=== PATIENT | female | born 1930 | race Caucasian/White ===

== ENCOUNTER 2017-03-28 12:50 | Inpatient (IN) | payer OTHER, MEDICARE ==
[~2017-03-28] VITALS: Ht 165.1 cm; Wt 73.5 kg
--- NOTE | 2017-03-28 13:35 | ED GI/GU/ABDOMINAL COMPLAINT ---
See Addendum History of Present Illness General Chief Complaint: General Adult Stated Complaint: PT HAS FEVER,BLOOD SUGAR IS HIGH 270 Source: patient, family Exam Limitations: no limitations Triage Note: PT TO ED WITH DAUGTHER FOR C/O ABD PAIN AND DIARRHEA X 2 WEEKS. FINGERSTICK 217. PT HAD EMS AT HER HOUSE, AND WAS TOLD SHE HAD A FEVER. AFEBRILE NOW. Triage Nurses Notes Reviewed? yes ? n Is pt currently ? No HPI: This is an 86-year-old female with past medical history significant for CAD status post quadruple vessel bypass, diabetes mellitus with diabetic neuropathy, hypothyroidism, hypertension, who comes in with the chief faint of abdominal pain and diarrhea. The patient's family who was in room with her, they stated that symptoms started around 2 weeks ago. Around that time she was having about 2-3 bowel movements a day. They did not initially recognize patient's symptoms as she did not mention it to them. Patient notices nausea but no vomiting. Last bowel movement was yesterday. Patient denies any today. Patient does endorse some abdominal pain. She states that it is "an upset feeling" in her lower quadrants of abdomen. She does endorse decreased appetite and family endorses noticeable weight loss. The family had called emergency medical services for outpatient as she seemed weaker and more lethargic. Per granddaughter, patient normally ambulates comfortably on her own. However, they had to bring her into the ED with a wheelchair as she was feeling weak. Additionally, she states that they had to vigorously shake her to wake up in the morning and there was concern for excessive lethargy. At home her fingerstick is around 217. Normally her blood sugars run between 100-130. Last week patient's PCP discontinued all oral hypoglycemics as her blood sugar was extremely well-controlled. Patient denies any headache, slurring of speech, blurry vision, facial droop, chest pain, shortness of breath, vomiting, recent travel, or sick contacts. She does endorse some nausea, diarrhea, decreased appetite. (ADAM POWELL,SUSY) Vital Signs & Intake/Output Vital Signs & Intake/Output Vital Signs Date Time Temp Pulse Resp B/P B/P Pulse O2 O2 Flow FiO2 Mean Ox Delivery Rate 03/28 1543 Room Air 03/28 1521 97.0 71 18 166/74 96 Room Air 03/28 1254 97.0 60 20 126/71 96 Room Air Allergies Coded Allergies: codeine (NAUSEA 03/28/17) nut - unspecified (ANAPHYLAXIS 03/28/17) Reconcile Medications Aspirin (Lo-Dose Aspirin EC) 81 MG TABLET.DR 1 TAB PO DAILY HEART/BLOOD ( Reported) Levothyroxine Sodium 50 MCG TABLET 1 TAB PO DAILY THYROID (Reported) Lisinopril 20 MG TABLET 1 TAB PO DAILY BP (Reported) Pravastatin Sodium 10 MG TABLET 1 TAB PO QPM CHOLESTEROL (Reported) (ARTHUR POWELL,MARTIN) Past History Travel History Traveled to [place] past 21 day No Medical History Any Pertinent Medical History? see below for history Cardiovascular: CAD, hypertension Respiratory: NONE Gastrointestinal: NONE Endocrine: diabetes, Hypothyroid Surgical History Surgical History: unobtainable Psychosocial History Tobacco Use: Never used ETOH Use: denies use Illicit Drug Use: denies illicit drug use Family History Hx Contributory? No (SUSY MEDINA MD) Review of Systems Review of Systems Constitutional: Reports: malaise, weakness, unexplained weight loss. Denies: chills, diaphoresis, fever. EENTM: Denies: blurred vision, visual changes. Respiratory: Reports: cough. Denies: short of breath, sputum production. Cardiovascular: Denies: chest pain, palpitations, syncope. GI: Reports: see HPI, abdominal pain, bloating, diarrhea, nausea. Denies: melena, bloody stool, changes in stool, vomiting. Genitourinary: Denies: dysuria, frequency, hesitation, pain. Musculoskeletal: Denies: back pain, joint pain, muscle pain. Skin: Reports: no symptoms. (ADAM POWELL,SUSY) Physical Exam Physical Exam General Appearance: no apparent distress, alert, awake Head: atraumatic, normal appearance Eyes: Bilateral: normal appearance, PERRL, EOMI, normal inspection. Ears, Nose, Throat, Mouth: hearing grossly normal Neck: supple Respiratory: crackles Cardiovascular: regular rate/rhythm, murmur, Does have intermittent PVC Gastrointestinal: soft, no rebound, guarding or rigidity. SOme slight tenderness to deep palpation in lower quadrants Back: No CVA tenderness Core Measures ACS in differential dx? No Severe Sepsis Present: No Septic Shock Present: No (ADAM POWELL,SUSY) Physical Exam Peripheral Pulses: 2+ radial (R), 2+ radial (L) Extremities: normal range of motion Neurologic/Psych: awake, alert, ORIENTED X 1 Skin: intact, normal color, warm/dry, ecchymosis (ARTHUR POWELL,MARTIN) Progress Differential Diagnosis: bowel obstruction, gastritis, UTI/pyelo Plan of Care: Orders Procedure Date/time Status Heart Healthy Diet 03/28 D Active CULTURE,STOOL 03/28 1749 Active OVA AND PARASITE ANTIGENS 03/28 1749 Active C.DIFFICILE 03/28 1749 Active Lab Add-on Test 03/28 171 Active CULTURE,STOOL 03/28 171 Active C.DIFFICILE 03/28 171 Active Add-on Test (ER Only) 03/28 1703 Active Pathway - chart 03/28 165 Active CULTURE,URINE 03/28 165 Active LOWER RESPIRATORY CULTURE 03/28 165 Active Add-on Test (ER Only) 03/28 1653 Active LACTIC ACID 03/28 1612 Active BASIC ELECTROLYTES PLUS BUN&CR 03/28 1610 Active URINE OSMOLALITY 03/28 1537 Active URINE LYTES, SPOT 03/28 1537 Active SERUM OSMOLALITY 03/28 1537 Active Patient Data 03/28 1527 Active Code Status 03/28 1526 Active Admit to inpatient 03/28 1522 Active Vital Signs 03/28 1522 Active Add-on Test (ER Only) 03/28 1504 Active STREP PNEUMO URINARY ANTIGEN 03/28 1500 Complete LEGIONELLA URINARY ANTIGEN 03/28 1500 Complete PHOSPHORUS 03/28 1410 Complete MAGNESIUM 03/28 1410 Complete FREE T4 03/28 1410 Complete FingerStick- Glucose 03/28 1325 Active BLOOD CULTURE 03/28 1312 Active URINALYSIS 03/28 1312 Complete THYROID STIMULATING HORMONE 03/28 1312 Complete LACTIC ACID 03/28 1312 Complete COMPREHENSIVE METABOLIC PANEL 03/28 1312 Complete CBC WITHOUT DIFFERENTIAL 03/28 1312 Complete ACETONE 03/28 1312 Complete EKG 03/28 1312 Active US-EXT BILAT VENOUS DOPPLER 03/28 UNK Active US-PELVIC MASS DIAG 03/28 UNK Active Lab Add-on Test 03/28 UNK Active VTE Mechanical Prophylaxis 03/28 UNK Active Vital Signs 03/28 UNK Active Intake & Output 03/28 UNK Active Current Medications Sig/Epifanio Start time Last Medication Dose Stop Time Status Admin Acetaminophen 650 MG Q6P PRN 03/28 1700 AC (Tylenol) Enoxaparin Sodium 40 MG DAILY@1700 03/28 1655 AC (Lovenox) Potassium Chloride 10 MEQ ONCE ONE 03/28 1615 CAN 03/28 1616 Magnesium Sulfate 1 GM Q2H 03/28 1545 AC (Mag Sulfate in D5) 03/28 1944 Dextrose/Water 100 ML (D5W) Sodium Chloride 1,000 ML Q10H 03/28 1345 AC 03/28 (Normal Saline 0.9%) 1527 Laboratory Tests 03/28/17 1710: Serum Osmolality Pending 03/28/17 1710: Lactic Acid Pending 03/28/17 1710: Sodium Pending, Potassium Pending, Chloride Pending, Carbon Dioxide Pending, Anion Gap Pending, BUN Pending, Creatinine Pending, BUN/Creatinine Ratio Pending 03/28/17 1500: Urine Color YEL, Urine Clarity CLDY H, Urine pH 6.5, Ur Specific [place] 1.010, Urine Protein 100 H, Urine Ketones NEG, Urine Nitrite NEG, Urine Bilirubin NEG, Urine Urobilinogen 0.2, Ur Leukocyte Esterase MOD H, Ur Microscopic SEDIMENT EXAMINED, Urine RBC 10-15 H, Urine WBC 3-5 H, Urine Bacteria PACKD H, Urine Hemoglobin MOD H, Urine Glucose NEG 03/28/17 1500: Urine Osmolality Pending, Ur Random Creatinine Pending, Ur Random Sodium Pending , Ur Random Potassium Pending, Fraction Sodium Excret Pending 03/28/17 1410: Anion Gap 7, Estimated GFR > 60, BUN/Creatinine Ratio 11.3, Glucose 178 H, Lactic Acid 0.8, Calcium 8.0 L, Phosphorus 2.1 L, Magnesium 1.5 L, Total Bilirubin 1.0, AST 26, ALT 31, Alkaline Phosphatase 69, Total Protein 5.3 L, Albumin 3.0 L, Globulin 2.3, Albumin/Globulin Ratio 1.3, TSH 3.220, Free T4 1.95 H, CBC w Diff NO MAN DIFF REQ, RBC 4.11 L, MCV 78.7 L, MCH 27.8, RDW 14.2, MPV 7.3 L, Gran % 73.9, Lymphocytes % 17.4 L, Monocytes % 8.3, Eosinophils % 0.1, Basophils % 0.3, Absolute Granulocytes 4.5, Absolute Lymphocytes 1.1 L, Absolute Monocytes 0.5, Absolute Eosinophils 0, Absolute Basophils 0, PUBS MCHC 35.3, Acetone Level NEGATIVE 03/28/17 1337: Acetone Level Cancelled 03/28/17 1336: TSH Cancelled Microbiology 03/28 1710 STOOL: Clostridium difficile Toxin A & B - ORD 03/28 171 STOOL: Stool Culture - ORD 03/28 1658 URINE ROUT: Urine Culture - CAN Cancelled: Cancelled via OE: Duplicate Order 03/28 1657 LOWER RESP: Respiratory Culture - ORD 03/28 165 LOWER RESP: Gram Stain - ORD 03/28 1500 URINE ROUT: Legionella Antigen - COMP 03/28 1500 URINE ROUT: Streptococcus pneumoniae Antigen (M - COMP STREP PNEUMO BACTERIAL AG 03/28 1500 URINE ROUT: Urine Culture - RECD 03/28 1415 BLOOD: Blood Culture - RECD 03/28 1410 BLOOD: Blood Culture - RECD Patient admitted to hospital service on general med. Electrolyte replacement initiated in the emergency department. CT scan shows bladder outlet obstruction and thickening in the pelvis. She may require an inpatient urology and gynecology consultation. Suspect electrolytes depletion from recurrent diarrhea. Consider stool cultures. (ARTHUR POWELL,MARTIN) Initial ED EKG: normal axis Comments: 1:42 PM- obtaining labs and imaging. 3:00 pm Labs notable for hyponatremia, hypochloremia. Repleting electrolytes 3:[address] Blair and MOD Dr. Fontaine. Pt will be admitted to floor. 5:[address] with hydronephrosis and bladder thickening (ADAM POWELL,[facility] [place]) Differential Diagnosis: COLITIS, MALIGNANCY, MALABSORPTION, SECRETORY DIARRHEA Diagnostic Imaging: Viewed by Me: CT Scan. Discussed w/RAD: CT Scan. Radiology Impression: PATIENT: DIANA JON PRESENT AGE: 86 PATIENT ACCOUNT NO: [id number] : 31 LOCATION: [facility] ORDERING PHYSICIAN: MARTIN GIBSON MD SERVICE DATE: 03/28/17 EXAM TYPE: CAT - CT ABD & PELVIS W IV CONTRAST; CT CHEST W IV CONTRAST EXAMINATION: CT CHEST WITH CONTRAST CT ABDOMEN AND PELVIS WITH CONTRAST CLINICAL INFORMATION: Weakness. Hyponatremia. COMPARISON: Renal ultrasound 03/07/2006. TECHNIQUE: Multidetector volumetric CT imaging of the chest, abdomen and pelvis was obtained after the administration of 95 mL of intravenous Optiray 320 without immediate adverse reactions. DLP: 358.42 mGy-cm FINDINGS: CT CHEST: Lungs: The lungs are clear with no evidence of inflammation or nodules. Mediastinum: Status post median sternotomy. Status post mitral valve annuloplasty. There is calcified small subcentimeter lymph node in the pretracheal retrovascular space. No bulky lymphadenopathy. There is vascular calcifications of aorta. There is no pericardial effusion. Large hiatal hernia. Pleura: There is no pleural effusion. No pleural mass or thickening. Axilla: No lymphadenopathy. CT ABDOMEN AND PELVIS : Liver, Gallbladder, and Biliary Tree: The liver is normal in size, shape, and attenuation. No focal hepatic lesion or biliary ductal dilatation is present. The gallbladder is unremarkable with no evidence of radiopaque gallstones, gallbladder wall thickening, or obvious pericholecystic inflammatory changes. Pancreas: No acute change of the pancreas. No mass. No pancreatic duct dilatation. Spleen: Spleen normal in size and contour. No focal lesion. Adrenal Glands: Adrenal glands are normal in size. No focal mass. Kidneys and Ureters: Marked bilateral hydronephrosis. There is dilatation of the calyces renal pelvis and ureters to the ureterovesical junction of both collecting systems. There is thinning of the cortex of both kidneys indicating that this is chronic change of the kidneys. Bladder: Bladder is partially filled. Mild bladder wall thickening. Gastrointestinal Tract: No acute change of bowel. No bowel obstruction. No bowel wall thickening or edema. A few diverticula of colon but no diverticulitis. The appendix is normal. The small bowel loops are normal. There is a large hiatal hernia. Mesentery: No focal inflammation. No free fluid. No free air. Abdominal Wall: No significant hernia is appreciated. Lymph Nodes: Normal Vascular: Atherosclerotic vascular calcifications of aorta and iliac vessels without aneurysm. Pelvic Viscera: Uterus is retroverted. Low attenuating area seen at the cervical region with fullness in the lower uterine segment and cervical area. Osseous Structures: Multilevel degenerative change of the spine with disc height narrowing and endplate spurs . Status post median sternotomy. Hip joint narrowing bilateral. Subchondral cystic change of the right femoral head. IMPRESSION: 1. Marked chronic hydronephrosis of both kidneys. Mild bladder wall thickening. Changes suggest bladder outlet obstruction. 2. Soft tissue fullness in the lower uterine segment and cervical region. Pelvic ultrasound would be suggested for further evaluation. Correlate with physical exam. 3. Large hiatal hernia. 4. No acute change of the chest. No significant lymphadenopathy or mass. Status post median sternotomy. DICTATED BY: GENET BOUDREAUX MD DATE/TIME DICTATED: 03/28/171600 PACK CHANGER:AMAYA DATE/TIME TRANSCRIBED:03/28/171600 CONFIDENTIAL, DO NOT COPY WITHOUT APPROPRIATE AUTHORIZATION. <Electronically signed in Other Vendor System> SIGNED BY: GENET BOUDREAUX MD 03/28/17 5548 (MARTIN GIBSON MD) Departure Departure Disposition: STILL A PATIENT Condition: Stable Clinical Impression Primary Impression: Hyponatremia Secondary Impressions: Hypokalemia Referrals: FREDERICK SINGH APRN (PCP/Family) Departure Forms: Customer Survey General Discharge Information Admission Note Spoke With: BRIANNE BLAIR MD Documentation of Exam: Documentation of any treatments & extenuating circumstances including Concerns Regarding Discharge (functional status, medication knowledge or non-compliance, living conditions, etc.) that warrant an admission rather than observation: [Pt significantly below baseline. Weak and lethargic. Profound hyponatremia/kalemia and electrolyte abnormalities] (ADAM POWELL,SUSY) Admission Note Documentation of Exam: Documentation of any treatments & extenuating circumstances including Concerns Regarding Discharge (functional status, medication knowledge or non-compliance, living conditions, etc.) that warrant an admission rather than observation: [ STOOL CULTURES, UROLOGY CONSULTATION, CONSIDER PELVIC U/S] Resident Co-Sign Statement Statement: ED Attending supervision documentation- [X] I saw and evaluated the patient. I have also reviewed all the pertinent lab results and diagnostic results. I agree with the findings and the plan of care as documented in the Resident's documentation. [X] I have reviewed the ED Record and agree with the Resident's documentation. [] Additions or exceptions (if any) to the Resident's note and plan are summarized below: [] (MARTIN GIBSON MD)
[2017-03-28 14:30] LABS: ABSOLUTE BASOPHIL COUNT 0 /CUMM (0.0-0.2); ABSOLUTE EOSINOPHIL COUNT 0 /CUMM (0.0-0.7); ABSOLUTE GRANULOCYTE CT 4.5 /CUMM (1.4-6.5); ABSOLUTE LYMPH COUNT 1.1 /CUMM (1.2-3.4); ABSOLUTE MONOCYTE COUNT 0.5 /CUMM (0.10-0.60); BASOPHIL % 0.3 % (0.0-2.0); EOSINOPHIL % 0.1 % (0-5); GRANULOCYTE % 73.9 % (42.2-75.2); HEMATOCRIT 32.3 % (37-47); MEAN CORPUSCULAR HGB 27.8 PG (27.0-31.0); MEAN CORPUSCULAR HGB CONC 35.3 G/DL (33.0-37.0); MEAN CORPUSCULAR VOLUME 78.7 FL (81.0-99.0); MEAN PLATELET VOLUME 7.3 FL (7.4-10.4); PLATELET COUNT 191 /CUMM (130-400); RBC DISTRIBUTION WIDTH 14.2 % (11.5-14.5); RED BLOOD CELL CT 4.11 /CUMM (4.20-5.40); WHITE BLOOD CELL COUNT 6.1 /CUMM (4.8-10.8)
--- NOTE | 2017-03-28 15:45 | History & Physical ---
TYSON POWELL,[facility] 03/28/17 1545: General Information and HPI MD Statement: I have seen and personally examined DIANA JON and documented this H&P. The patient is a 86 year old F who presented with a patient stated chief complaint of [DIARRHEA,ABDOMINAL PAIN, WEAKNESS]. Source of Information: patient, great-granddaughter Exam Limitations: no limitations History of Present Illness: 86-year-old female with PMH of CAD s/p quadruple bypass, DM with diabetic nephropathy, hypothyroidism, HTN, was brought in for 2 weeks history of diarrhea , low abdominal pain, and weakness. She describes the abdominal pain as "sickly feeling, dullache, associated with nausea without vomiting. She has 3-4 loose bowel movements daily. She drinks about 8 glasses of water daily. She usually eats banana and yogurt. She denies eating unusual food, sick contacts, travel history, recent antibiotics use. She complains of cough, productive of sputum. Denies shortness of breath, chest pain. Pt lives in a [facility] apartment by herself, independent at baseline. Over the last 2 weeks, she hasn't been wanting to go out much. Her son and great- granddaughter frequently checks in on her (daily). Over the last 1 month, she has been needing a walker to ambulate due to decreased sensation on her feet. EMS was called, they reported temp of 100.4, and blood sugar of 270. Of note, she followed up with her PCP in January and was taken off glipizide due to well- controlled blood sugar. Allergies/Medications Allergies: Coded Allergies: codeine (NAUSEA 03/28/17) nut - unspecified (ANAPHYLAXIS 03/28/17) Past History Travel History Traveled to [place] past 21 day No Medical History Cardiovascular: CAD, hypertension Respiratory: NONE Gastrointestinal: NONE Endocrine: diabetes, Hypothyroid Surgical History Surgical History: non-contributory Past Family/Social History Family History Relations & Conditions if any BROTHER FH: diabetes mellitus Psychosocial History Where do you live? Home Who Do You Live With? self Services at Home: None Smoking Status: Never Smoked ETOH Use: denies use Illicit Drug Use: denies illicit drug use Functional Ability ADLs Independent: dressing, eating, toileting, bathing. Ambulation: independent, walker IADLs Independent: shopping, housework, finances, food prep, telephone, transportation , medication admin. Review of Systems Review of Systems Constitutional: Reports: fever, weakness. Denies: chills. EENTM: Denies: visual changes. Cardiovascular: Denies: chest pain. Respiratory: Reports: cough, sputum production. Denies: short of breath. GI: Reports: abdominal pain, diarrhea, nausea. Denies: bloody stool, vomiting. Genitourinary: Denies: dysuria. Exam & Diagnostic Data Last 24 Hrs of Vital Signs/I&O Vital Signs Date Time Temp Pulse Resp B/P B/P Pulse O2 O2 Flow FiO2 Mean Ox Delivery Rate 03/28 1543 Room Air 03/28 1521 97.0 71 18 166/74 96 Room Air 03/28 1254 97.0 60 20 126/71 96 Room Air Intake & Output 03/28 1600 03/28 0800 03/28 0000 Intake Total Output Total Balance Patient 68.946 kg Weight Weight Estimated Measurement Method Physical Exam General Appearance Alert, Oriented X3, Cooperative, No Acute Distress Skin No Rashes, No Breakdown, No Significant Lesion HEENT Atraumatic, PERRLA, Mucous Membr. moist/pink Neck Supple, +2 Carotid Pulse wo Bruit Cardiovascular + murmur, rate irregular most likely due to PVCs Lungs rhonchi at lung bases, could be due to grunting Abdomen Normal Bowel Sounds, Soft, No Tenderness, movable mass on left lower quadrant Neurological Normal Speech, Normal Tone, strength 4/5 Extremities right lower extremity larger than left, slightly tender Vascular Normal Pulses, Pulses Symmetrical, normal cap refill Last 24 Hrs of Labs/Osvaldo: Laboratory Tests 03/28/17 1710: Serum Osmolality Pending 03/28/17 1710: Lactic Acid Pending 03/28/17 1710: Sodium Pending, Potassium Pending, Chloride Pending, Carbon Dioxide Pending, Anion Gap Pending, BUN Pending, Creatinine Pending, BUN/Creatinine Ratio Pending 03/28/17 1500: Urine Color YEL, Urine Clarity CLDY H, Urine pH 6.5, Ur Specific [place] 1.010, Urine Protein 100 H, Urine Ketones NEG, Urine Nitrite NEG, Urine Bilirubin NEG, Urine Urobilinogen 0.2, Ur Leukocyte Esterase MOD H, Ur Microscopic SEDIMENT EXAMINED, Urine RBC 10-15 H, Urine WBC 3-5 H, Urine Bacteria PACKD H, Urine Hemoglobin MOD H, Urine Glucose NEG 03/28/17 1410: Anion Gap 7, Estimated GFR > 60, BUN/Creatinine Ratio 11.3, Glucose 178 H, Lactic Acid 0.8, Calcium 8.0 L, Phosphorus Pending, Magnesium 1.5 L, Total Bilirubin 1.0, AST 26, ALT 31, Alkaline Phosphatase 69, Total Protein 5.3 L, Albumin 3.0 L, Globulin 2.3, Albumin/Globulin Ratio 1.3, TSH 3.220, Free T4 Pending, CBC w Diff NO MAN DIFF REQ, RBC 4.11 L, MCV 78.7 L, MCH 27.8, RDW 14.2, MPV 7.3 L, Gran % 73.9, Lymphocytes % 17.4 L, Monocytes % 8.3, Eosinophils % 0.1, Basophils % 0.3, Absolute Granulocytes 4.5, Absolute Lymphocytes 1.1 L, Absolute Monocytes 0.5, Absolute Eosinophils 0, Absolute Basophils 0, PUBS MCHC 35.3, Acetone Level NEGATIVE 03/28/17 1337: Acetone Level Cancelled 03/28/17 1336: TSH Cancelled Microbiology 03/28 171 STOOL: Clostridium difficile Toxin A & B - ORD 03/28 171 STOOL: Stool Culture - ORD 03/28 165 URINE ROUT: Urine Culture - CAN Cancelled: Cancelled via OE: Duplicate Order 03/28 1657 URINE ROUT: Urine Culture - ORD 03/28 1657 LOWER RESP: Respiratory Culture - ORD 03/28 165 LOWER RESP: Gram Stain - ORD 03/28 1415 BLOOD: Blood Culture - RECD 03/28 141 BLOOD: Blood Culture - RECD Diagnostic Data EKG Results rate 66 sinus rhythm qtc 495 Other Results EXAMINATION: CT CHEST WITH CONTRAST CT ABDOMEN AND PELVIS WITH CONTRAST CLINICAL INFORMATION: Weakness. Hyponatremia. COMPARISON: Renal ultrasound 03/07/2006. TECHNIQUE: Multidetector volumetric CT imaging of the chest, abdomen and pelvis was obtained after the administration of 95 mL of intravenous Optiray 320 without immediate adverse reactions. DLP: 358.42 mGy-cm FINDINGS: CT CHEST: Lungs: The lungs are clear with no evidence of inflammation or nodules. Mediastinum: Status post median sternotomy. Status post mitral valve annuloplasty. There is calcified small subcentimeter lymph node in the pretracheal retrovascular space. No bulky lymphadenopathy. There is vascular calcifications of aorta. There is no pericardial effusion. Large hiatal hernia. Pleura: There is no pleural effusion. No pleural mass or thickening. Axilla: No lymphadenopathy. CT ABDOMEN AND PELVIS: Liver, Gallbladder, and Biliary Tree: The liver is normal in size, shape, and attenuation. No focal hepatic lesion or biliary ductal dilatation is present. The gallbladder is unremarkable with no evidence of radiopaque gallstones, gallbladder wall thickening, or obvious pericholecystic inflammatory changes. Pancreas: No acute change of the pancreas. No mass. No pancreatic duct dilatation. Spleen: Spleen normal in size and contour. No focal lesion. Adrenal Glands: Adrenal glands are normal in size. No focal mass. Kidneys and Ureters: Marked bilateral hydronephrosis. There is dilatation of the calyces renal pelvis and ureters to the ureterovesical junction of both collecting systems. There is thinning of the cortex of both kidneys indicating that this is chronic change of the kidneys. Bladder: Bladder is partially filled. Mild bladder wall thickening. Gastrointestinal Tract: No acute change of bowel. No bowel obstruction. No bowel wall thickening or edema. A few diverticula of colon but no diverticulitis. The appendix is normal. The small bowel loops are normal. There is a large hiatal hernia. Mesentery: No focal inflammation. No free fluid. No free air. Abdominal Wall: No significant hernia is appreciated. Lymph Nodes: Normal Vascular: Atherosclerotic vascular calcifications of aorta and iliac vessels without aneurysm. Pelvic Viscera: Uterus is retroverted. Low attenuating area seen at the cervical region with fullness in the lower uterine segment and cervical area. Osseous Structures: Multilevel degenerative change of the spine with disc height narrowing and endplate spurs . Status post median sternotomy. Hip joint narrowing bilateral. Subchondral cystic change of the right femoral head. IMPRESSION: 1. Marked chronic hydronephrosis of both kidneys. Mild bladder wall thickening. Changes suggest bladder outlet obstruction. 2. Soft tissue fullness in the lower uterine segment and cervical region. Pelvic ultrasound would be suggested for further evaluation. Correlate with physical exam. 3. Large hiatal hernia. 4. No acute change of the chest. No significant lymphadenopathy or mass. Status post median sternotomy. DICTATED BY: GENET BOUDREAUX MD DATE/TIME DICTATED:03/28/171600 Assessment/Plan Assessment: 86-year-old female with PMH of CAD s/p quadruple bypass, DM with diabetic nephropathy, hypothyroidism, HTN, was brought in for 2 weeks history of diarrhea , low abdominal pain, and weakness. Labs were significant for hyponatremia na 116, hypochloridemia cl 76, hypokalemia k 3.8, UA positive for LE, WBC, bacteria , without suprapubic tenderness. Physical exam significant for a movable mass on the left lower quadrant, rhonchi over lung bases, right lower extremity larger than left lower extremity with mild tenderness. Patient admitted to general medicine for electrolyte repletion (hyponatremia, hypokalemia, hypochloridemia), possible UTI vs pneumonia vs gastroenteritis. # Hyponatremia # Hypokalemia # UTI vs pneumonia vs gastroenteritis # DM # h/o of htn, hypothyroidism, hyperlipidemia # Hyponatremia, SIADH vs psychogenic polydipsia - Pt reports drinking 8 glasses of water daily - Na was 116 on admission * Follow urine studies - lytes, osm * Check BEP every 4 hours # Hypokalemia - K was 2.8 on admission - Mg was 1.5 on admission * Replete as needed # UTI vs pneumonia vs gastroenteritis CT CHEST,ABDOMEN AND PELVIS: The lungs are clear with no evidence of inflammation or nodules. Large hiatal hernia. Kidneys and Ureters: Marked bilateral hydronephrosis. There is dilatation of the calyces renal pelvis and ureters to the ureterovesical junction of both collecting systems. There is thinning of the cortex of both kidneys indicating that this is chronic change of the kidneys. Bladder: Bladder is partially filled. Mild bladder wall thickening. Gastrointestinal Tract: No acute change of bowel. No bowel obstruction. No bowel wall thickening or edema. A few diverticula of colon but no diverticulitis. The appendix is normal. The small bowel loops are normal. Pelvic Viscera: Uterus is retroverted. Low attenuating area seen at the cervical region with fullness in the lower uterine segment and cervical area. Soft tissue fullness in the lower uterine segment and cervical region. Pelvic ultrasound would be suggested for further evaluation. Correlate with physical exam. * r/o DVT with doppler as left lower extremity was larger than right * follow off abx as wbc not elevated, vital signs stable * follow bcx2, uc, lrc, stool cx * qtc 495, avoid qt prolonging agents for nausea # DM * Accucheck and novolog ss # h/o of htn, hypothyroidism, hyperlipidemia * Continue aspirin 81, lisnopril 20, levothyroxine, pravastatin Diet: Diabetic diet DVT ppx: mech and pharm FULL CODE As Ranked By This Provider Problem List: 1. Hyponatremia 2. Hypokalemia Core Measures/Miscellaneous Acute Coronary Syndrome ACS Diagnosis: No Cerebrovascular Accident CVA/TIA Diagnosis: No Congestive Heart Failure CHF Diagnosis: No Venous Thromboembolism VTE Risk Factors: Acute medical illness, Age > 40 No Mech VTE prophylaxis d/t: No contraindications No VTE Pharm Prophylaxis d/t: No contraindications VTE Diagnosis: No VTE Type: NONE VTE Confirmed by (Test): NONE Severe Sepsis Severe Sepsis Present: No Septic Shock Septic Shock Present: No Miscellaneous Documentation Attending Case Discussed With: BRIANNE PENA MD Primary Care Physician: FREDERICK SINGH APRN Patient sees these Specialists None Level of Patient Care: General Medicine TERRI SALINAS 03/28/17 1550: General Information and HPI Allergies/Medications Home Med list Aspirin (Lo-Dose Aspirin EC) 81 MG TABLET.DR 1 TAB PO DAILY HEART/BLOOD ( Reported) Diphenoxylate HCl/Atropine (Lomotil 2.5-0.025 MG Tablet) 2.5 MG-0.025 MG TABLET 1 TAB PO TID PRN diarrhea Levothyroxine Sodium 50 MCG TABLET 1 TAB PO DAILY THYROID (Reported) Lisinopril 20 MG TABLET 1 TAB PO DAILY BP (Reported) Pravastatin Sodium 10 MG TABLET 1 TAB PO QPM CHOLESTEROL (Reported) Sodium Chloride 1 GRAM TABLET 1,000 MG PO TID Low sodium Please follow up with Dr. De La Cruz and PCP Resident Review Statement Resident Statement: examined this patient, discussed with grinder set up operator internal, agreed with grinder set up operator internal Other Findings: This is a 86-year-old very pleasant female with PMH of CAD s/p quadruple bypass, DM with diabetic nephropathy, hypothyroidism, HTN, was brought in from home for chief complaint of dull kind of diffuse abdominal pain with diarrhea for 2 weeks prior to admission, which has stopped now, 3 to 4 episodes, loose watery, no blood, no mucus, associated with nausea which has been slowly progressively worsening and that is why she came in to the ER for further evaluation. She denied any history of recent antibiotics usage, eating outside, travel ,any sick contacts, vomiting, urinary complaint, chest pain ,SOB,fever, chills. She also complains of cough, productive of sputum. Denies shortness of breath, chest pain. It's worth while to note that she was walking independently at baseline and recently since last one month she has started to use walker ue ot weakness.She also noted that even though he is is a diabetic she was taken off the antidiabetic medications glipizide as she didn't need it any more. vitals and lab as above. Physical exam PAtient is AXO3, no distress Seems very well hydrated, oral mucosa wet and skin no element of dryness. CVS : s1,s2 present RS : AEBE no adventitious sounds PA : mild firm to hard consistency noted in the lower abdomen,no tenderness, pain, BS +, otherwise rest of the abdomen soft B/l lower no edema, cyanosis or clubbing neuro nonfocal. Problem list alongwith assessment and plan In summary ,this is a very pleasant 86-year-old female ,nonsmoker, nonalcoholic, no illicit drug use,with PMH of CAD s/p quadruple bypass, DM with diabetic nephropathy, hypothyroidism, HTN, with lower abdominal pain alongwith 2 weeks history of diarrhea,who seems to be drinking water atleast 8 , might be more, looks euvolemic on PE and well hydrated, with no pedal edema, clear lungs was found to have hypokalemia, hyponatremia and hypomagnesemia with mild positive US no symptoms, streptococcal pneumonia AG positive, afebrile, no evidence of pneumonia on CT chest. We will admit her to general medicine floor. Problem List alongwith assessment and plan Problem #1 Hyponatremia * urine spot lytes with serum osmolality was checked. * Low serum osmolality with low urine osmolality * hyponatremia most likely 2/2 to primary polydipsia v/s SIADH * patient received one liters of normal saline in the ED ,therefore initial sodium dipped down form 116 to 115 * please start patient on water restriction, can do 900 ml for now. * Please ct to check sodium at every 4 hours, and adjust restriction for target of not more than 8 meq in 24 hours. * Ct to monitor closely. Problem #2 hypokalemia * Low pottasium most liekly 2/2 to dirrhea. * After intial repletion ,it corrected nicely. * ct to monitor and replete as needed. * no ekg changes 2/2 to hypokalemia were noted. Problem #4 hypomagnesemia * Again most likely 2/2 to dirrhea. * initially were repleting IV, however will change to PO due ot water restriction. Problem #5 positve strep PNA AG, positve UA * no symptoms, afebrile, no white count * will hold off Ax for now. Continue aspirin 81, lisnopril 20, levothyroxine, pravastatin, low dose insulin SS with novolog for DM PAtient is FC dvt Px with lovenox PP with tylenol CC-3 BRIANNE PENA MD 03/28/17 2224: Attending MD Review Statement Attending Statement Attending MD Statement: examined this patient, discuss w/resident/PA/SHAVING MACHINE OPERATOR, agreed w/resident/PA/SHAVING MACHINE OPERATOR, reviewed EMR data (avail), reviewed images, amended to note Attending Assessment/Plan: The patient is an 86 yo female with h/o CAD (s/p CABG), DM2 (w/neuropathy), HTN, & hypothyroid who presented in the ED with c/o 2 week h/o diarrhea (4-5 loose BM's/day), mild abdominal crams and generalized weakness, and low grade fever 100.4 degrees. She does note some nausea and decreased appetite, however no vomiting. No travel or recent antibiotics. She denied any cough, chills, dyspnea , chest pain, palpitations or other symptoms. She had no bowel movement on the day of admission. In the ED was noted to have low Na (116), K (2.8) and Mg (1.5) . Physical Exam: VS: T 97.0, P 60, R 18, BP 126/71, PO 96% RA HEENT: eyes- PERRLA, EOMI [place]- dry mucosa Neck: no adenopathy or bruits Chest: clear Cor: RRR, nl S1, S2 w/o murm Abd: BS+, soft, no sig tenderness, no HSM Ext: no edema Neuro: non-focal, alert & oriented x 3 Labs/Tests- as above Impression/Plan: #Weakness- multifactorial due to electrolyte imbalance, ? infection (low grade fever-UTI vs gastroenteritis/viral syndrome), anemia (?chronic). Plan: Admit to general medicine. Correct electrolyte imbalance/hydrate. Will culture urine, etc. evaluate for infection. #Hyponatremia/Hypokalemia/Hypomagnesemia- - appears mildly volume depleted. ? SIADH, polydipsia. Has had mild reduction of Na in past (134-5). NS given in ED. May be drinking excess free water (polydipsia). Plan: Check urine lytes/osms and determine cause of hyponatremia. Replete K and Mg (IV). Hold further IV hydration pending urine testing. #Fever/Diarrhea- afebrile at present, however patient reports low grade temp at home. No distinct localizing symptoms. Urine strep positive, however patient with clear lungs and negative CT/radiograph. Plan: Castellano culture as above and observe. Check stool studies and C-difficile. #DM2- on insulin. Plan: Check glucoscans and sliding scale coverage. #Hypothyroid- clinically euthyroid. Plan: Continue Levothyroxine. #HTN-BP stable. Plan: Continue Lisinopril. #HL- on Pravastatin. Plan: Continue statin. #CAD- no angina. S/P prior CABG. Plan: Continue ASA/statin/lisinopril.
[2017-03-28] MEDS ORDERED: LEVOTHYROXINE50 MCG PO (15:53)
[2017-03-28] MEDS ORDERED: LISINOPRIL20 M1 PO (15:53)
[2017-03-28] MEDS ORDERED: PRAVASTATIN SOD10 M2 PO (15:53)
[2017-03-28] MEDS ORDERED: LO-DOSE ASPIRIN81 MG PO (15:54)
[2017-03-28] MEDS ORDERED: COLESTIPOL HCL1 GM PO (15:54)
--- NOTE | 2017-03-28 16:58 | CT SCAN REPORT ---
EXAMINATION: CT CHEST WITH CONTRAST CT ABDOMEN AND PELVIS WITH CONTRAST CLINICAL INFORMATION: Weakness. Hyponatremia. COMPARISON: Renal ultrasound 03/07/2006. TECHNIQUE: Multidetector volumetric CT imaging of the chest, abdomen and pelvis was obtained after the administration of 95 mL of intravenous Optiray 320 without immediate adverse reactions. DLP: 358.42 mGy-cm FINDINGS: CT CHEST: Lungs: The lungs are clear with no evidence of inflammation or nodules. Mediastinum: Status post median sternotomy. Status post mitral valve annuloplasty. There is calcified small subcentimeter lymph node in the pretracheal retrovascular space. No bulky lymphadenopathy. There is vascular calcifications of aorta. There is no pericardial effusion. Large hiatal hernia. Pleura: There is no pleural effusion. No pleural mass or thickening. Axilla: No lymphadenopathy. CT ABDOMEN AND PELVIS: Liver, Gallbladder, and Biliary Tree: The liver is normal in size, shape, and attenuation. No focal hepatic lesion or biliary ductal dilatation is present. The gallbladder is unremarkable with no evidence of radiopaque gallstones, gallbladder wall thickening, or obvious pericholecystic inflammatory changes. Pancreas: No acute change of the pancreas. No mass. No pancreatic duct dilatation. Spleen: Spleen normal in size and contour. No focal lesion. Adrenal Glands: Adrenal glands are normal in size. No focal mass. Kidneys and Ureters: Marked bilateral hydronephrosis. There is dilatation of the calyces renal pelvis and ureters to the ureterovesical junction of both collecting systems. There is thinning of the cortex of both kidneys indicating that this is chronic change of the kidneys. Bladder: Bladder is partially filled. Mild bladder wall thickening. Gastrointestinal Tract: No acute change of bowel. No bowel obstruction. No bowel wall thickening or edema. A few diverticula of colon but no diverticulitis. The appendix is normal. The small bowel loops are normal. There is a large hiatal hernia. Mesentery: No focal inflammation. No free fluid. No free air. Abdominal Wall: No significant hernia is appreciated. Lymph Nodes: Normal Vascular: Atherosclerotic vascular calcifications of aorta and iliac vessels without aneurysm. Pelvic Viscera: Uterus is retroverted. Low attenuating area seen at the cervical region with fullness in the lower uterine segment and cervical area. Osseous Structures: Multilevel degenerative change of the spine with disc height narrowing and endplate spurs . Status post median sternotomy. Hip joint narrowing bilateral. Subchondral cystic change of the right femoral head. IMPRESSION: 1. Marked chronic hydronephrosis of both kidneys. Mild bladder wall thickening. Changes suggest bladder outlet obstruction. 2. Soft tissue fullness in the lower uterine segment and cervical region. Pelvic ultrasound would be suggested for further evaluation. Correlate with physical exam. 3. Large hiatal hernia. 4. No acute change of the chest. No significant lymphadenopathy or mass. Status post median sternotomy.
--- NOTE | 2017-03-28 19:02 | ULTRASOUND REPORT ---
EXAMINATION: US TRIPLEX OF LOWER EXTREMITIES, BILATERAL CLINICAL INFORMATION: Right lower extremity larger than left. Evaluate for deep vein thrombosis. COMPARISON: None TECHNIQUE: Color-flow triplex imaging with spectral analysis and compression Doppler were performed on the lower extremities. FINDINGS: The common femoral vein is compressible and exhibits a normal phasic waveform, bilaterally; this suggests that the iliac veins are widely patent above. Within each proximal thigh, the visualized profunda femoris vein is patent. The visualized greater saphenous vein and saphenofemoral junction are normal, bilaterally. Superficial femoral vein is patent in the proximal, mid and distal aspect of each thigh. Popliteal vein appears normal to the level of the trifurcation, bilaterally, and the visualized calf veins are unremarkable. No evidence of Redman's cyst. IMPRESSION: No evidence of deep vein thrombosis in either lower extremity.
--- NOTE | 2017-03-28 19:14 | ULTRASOUND REPORT ---
EXAMINATION: US PELVIC MASS DIAGNOSIS CLINICAL INFORMATION: Soft tissue fullness in cervical area on CT exam. Soft tissue mass requiring further evaluation. COMPARISON: CT images of abdomen pelvis from 03/28/2017. TECHNIQUE: Transabdominal imaging of the pelvis was performed using a curved 5 MHz transducer. FINDINGS: The urinary bladder wall appears mildly thickened and trabeculated. No focal bladder mucosal mass is identified. No evidence of bladder debris or calculi. The visualized right and left ureters are dilated, each measuring approximately 2 cm AP diameter. No pelvic free fluid. The uterus is not identified. Correlate for history of hysterectomy. Neither ovary is seen. There are no adnexal masses. On the recent CT images of the pelvis of 03/28/2017, there appears to be generalized thickening of the vaginal wall. Recommend correlation with findings on a standard gynecologic physical examination. IMPRESSION: Urinary bladder has a mildly thickened, trabeculated appearance and the ureters are markedly dilated in this patient with severe bilateral hydronephrosis. 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 However, the specific cause of the obstruction is not elucidated. There is apparent diffuse thickening of the vaginal wall on the recent CT exam. Recommend correlation with findings on physical examination.
--- NOTE | 2017-03-28 22:49 | Admission Certification ---
Admission Certification Certification Statement - As attending physician, I certify that at the time of - admission, based on clinical presentation, severity of - symptoms, need for further diagnostic testing and - therapeutic interventions, and risk of adverse outcomes - without in-hospital treatment, in my clinical assessment, - this patient requires an acute hospital stay for a minimum - of two nights or longer. I have also considered psychsocial - factors such as support system, advanced age, financial - issues, cognitive issues, and failed out-patient treatments, - past re-admission history, safety of patient, and lack of - compliance as applicable. Specific rationale supporting this admission is: Patient presents with weakness, low grade fever, diarrhea. [place] with hyponatremia (116), hypokalemia (2.8), and hypomagnesemia (1.5). Needs admission for cultures, evaluation of electrolyte abnormalities/repletion.
--- NOTE | 2017-03-29 06:37 | PN- Housestaff ---
TYSON POWELL,[facility] 03/29/17 0637: Subjective Follow-up For: hyponatremia weakness Subjective: Pt was seen today, feels well and was asking to go home by 4pm today. Told her that she is likely NOT going home today because we want to monitor her sodium, and have PT evaluate her. We are also awaiting nephrology input on her hydronephrosis. She has hx of prolapsed bladder for which surgical intervention was attempted but she again had prolapse a few weeks after. She and her family refused wells and does not care to have further intervention for the prolapsed bladder. She apparently is urinating fine, and denies dysuria. Her sodium went up from 115 up to 124 in less than 12 hours, so she was taken off fluid restriction, and we will keep checking her sodium. 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 her k went up from 2.8 to 5.4, will check next k. she grew gnr in urine , but it is probably asymptmatic bacteriuria, hence would not treat with abx. Review of Systems Constitutional: Reports: see HPI. Objective Last 24 Hrs of Vital Signs/I&O Vital Signs Date Time Temp Pulse Resp B/P B/P Pulse O2 O2 Flow FiO2 Mean Ox Delivery Rate 03/29 0934 70 166/72 03/29 0521 98.0 70 18 166/72 95 03/29 0010 97.7 75 18 175/79 95 Room Air 03/28 2205 97.0 72 16 172/75 95 Room Air 03/28 1907 97.6 68 16 175/81 96 Room Air 03/28 1543 Room Air 03/28 1521 97.0 71 18 166/74 96 Room Air Intake & Output 03/29 1600 03/29 0800 03/29 0000 Intake Total 1000 Output Total Balance 1000 Intake, IV 1000 Patient 73.482 kg Weight Weight Reported by Patient Measurement Method Physical Exam General Appearance: Alert, Oriented X3, Cooperative, No Acute Distress Cardiovascular: Regular Rate, Normal S1, Normal S2 Lungs: Clear to Auscultation, Normal Air Movement Abdomen: Normal Bowel Sounds, Soft, No Tenderness Neurological: Normal Speech Extremities: No Edema Vascular: Normal Pulses, Pulses Symmetrical Current Medications: Current Medications Sig/Epifanio Start time Last Medication Dose Route Stop Time Status Admin Acetaminophen 650 MG Q6P PRN 03/28 1700 AC PO Acetaminophen 325 MG Q6P PRN 03/28 1345 DC PO Aspirin Buffered 81 MG DAILY 03/29 1000 AC 03/29 PO 0933 Enoxaparin Sodium 0 .STK-MED ONE 03/28 1801 DC SC Enoxaparin Sodium 40 MG DAILY@1700 05/ 1655 AC 03/28 SC 1755 Insulin Aspart 0 TIDAC 03/29 0800 AC 03/29 SC 1244 Levothyroxine Sodium 0.05 MG DAILY AC 03/29 0700 AC 03/29 PO 0655 Lisinopril 20 MG DAILY 03/29 1000 AC 03/29 PO 0934 Magnesium Oxide 400 MG BID 03/28 2200 DC 03/29 PO 03/29 1001 0934 Magnesium Sulfate 1 GM Q2H 03/28 1545 DC 03/28 Dextrose/Water 100 ML IV 03/28 1944 1755 Potassium Chloride 60 MEQ ONCE ONE 03/29 0700 DC 03/29 PO 03/29 0701 0655 Potassium Chloride 0 .STK-MED ONE 03/29 0240 DC PO Potassium Chloride 0 .STK-MED ONE 03/29 0008 DC PO Potassium Chloride 40 MEQ Q2H 03/28 2230 DC 03/29 PO 03/29 0031 0238 Potassium Chloride 10 MEQ ONCE ONE 03/28 1615 CAN IV 03/28 1616 Potassium Chloride 0 .STK-MED ONE 03/28 1534 DC PO Potassium Chloride 10 MEQ Q1H 03/28 1515 DC 03/28 IV 03/28 1616 1646 Potassium Chloride 40 MEQ ONCE ONE 03/28 1515 DC 03/28 PO 03/28 1516 1539 Pravastatin Sodium 10 MG QPM 03/28 2200 AC 03/28 PO 2211 Sodium Chloride 1,000 ML Q10H 03/28 1345 DC 03/28 IV 1527 Last 24 Hrs of Lab/Osvaldo Results Last 24 Hrs of Labs/Mics: Laboratory Tests 03/29/17 0915: Anion Gap 5, Estimated GFR > 60, BUN/Creatinine Ratio 6.3 L 03/29/17 0514: Anion Gap 5, Estimated GFR > 60, BUN/Creatinine Ratio 7.5, Magnesium 2.0 03/29/17 0104: Anion Gap 5, Estimated GFR > 60, BUN/Creatinine Ratio 10.0 03/28/172056: Anion Gap 7, Estimated GFR > 60, BUN/Creatinine Ratio 11.4 03/28/17 1710: Serum Osmolality 255 L 03/28/17 1710: Lactic Acid 0.8 03/28/17 1710: Anion Gap 7, Estimated GFR > 60, BUN/Creatinine Ratio 10.0 03/28/17 1500: Urine Color YEL, Urine Clarity CLDY H, Urine pH 6.5, Ur Specific [place] 1.010, Urine Protein 100 H, Urine Ketones NEG, Urine Nitrite NEG, Urine Bilirubin NEG, Urine Urobilinogen 0.2, Ur Leukocyte Esterase MOD H, Ur Microscopic SEDIMENT EXAMINED, Urine RBC 10-15 H, Urine WBC 3-5 H, Urine Bacteria PACKD H, Urine Hemoglobin MOD H, Urine Glucose NEG 03/28/17 1500: Urine Osmolality 129 L, Ur Random Creatinine 23.6, Ur Random Sodium 24 L, Ur Random Potassium 9.3, Fraction Sodium Excret 0.7 03/28/17 1410: Anion Gap 7, Estimated GFR > 60, BUN/Creatinine Ratio 11.3, Glucose 178 H, Lactic Acid 0.8, Calcium 8.0 L, Phosphorus 2.1 L, Magnesium 1.5 L, Total Bilirubin 1.0, AST 26, ALT 31, Alkaline Phosphatase 69, Total Protein 5.3 L, Albumin 3.0 L, Globulin 2.3, Albumin/Globulin Ratio 1.3, TSH 3.220, Free T4 1.95 H, CBC w Diff NO MAN DIFF REQ, RBC 4.11 L, MCV 78.7 L, MCH 27.8, RDW 14.2, MPV 7.3 L, Gran % 73.9, Lymphocytes % 17.4 L, Monocytes % 8.3, Eosinophils % 0.1, Basophils % 0.3, Absolute Granulocytes 4.5, Absolute Lymphocytes 1.1 L, Absolute Monocytes 0.5, Absolute Eosinophils 0, Absolute Basophils 0, PUBS MCHC 35.3, Acetone Level NEGATIVE Microbiology 03/29 1227 STOOL: Clostridium difficile Toxin A & B - RECD 03/29 1227 STOOL: Stool Culture - RECD 03/29 0633 URINE ROUT: Urine Culture - CAN Cancelled: Cancelled via OE: ADD ON 03/28 2010 STOOL: Clostridium difficile Toxin A & B - RES 03/28 2010 STOOL: Stool Culture - RES 03/28 1749 STOOL: Cryptosporidium Antigen - CAN Cancelled: Cancelled via OE: Duplicate Order 03/28 1749 STOOL: Giardia Antigen (OSVALDO) - CAN Cancelled: Cancelled via OE: Duplicate Order 03/28 174 STOOL: Stool Culture - CAN Cancelled: Cancelled via OE: Duplicate Order 03/28 165 URINE ROUT: Urine Culture - CAN Cancelled: Cancelled via OE: Duplicate Order 03/28 165 LOWER RESP: Respiratory Culture - CAN Cancelled: SPECIMEN NOT RECEIVED IN LABORATORY 03/28 165 LOWER RESP: Gram Stain - CAN Cancelled: SPECIMEN NOT RECEIVED IN LABORATORY 03/28 1500 URINE ROUT: Legionella Antigen - COMP 03/28 1500 URINE ROUT: Streptococcus pneumoniae Antigen (M - COMP STREP PNEUMO BACTERIAL AG 03/28 1500 URINE ROUT: Urine Culture - RES GRAM NEGATIVE RODS 03/28 1415 BLOOD: Blood Culture - RES 03/28 1410 BLOOD: Blood Culture - RES Assessment/Plan Assessment: 86-year-old female with PMH of CAD s/p quadruple bypass, DM with diabetic nephropathy, hypothyroidism, HTN, prolapse bladder, hysterectomy, was brought in for 2 weeks history of diarrhea, low abdominal pain, and weakness. Labs were significant for hyponatremia na 116, hypochloridemia cl 76, hypokalemia k 3.8, UA positive for LE, WBC, bacteria, without suprapubic tenderness. Physical exam significant for a movable mass on the left lower quadrant, rhonchi over lung bases, right lower extremity larger than left lower extremity with mild tenderness. CT chest showed no acute lung findings, however urine strep pneumo antigen was positive, legionella negative. CT abdomen revealed bilateral hydronephrosis and bladder wall thickening, although patient has no trouble urinating. She refused wells or further intervention for her prolapsed bladder. Doppler was done and DVT was ruled out. Patient admitted to general medicine for electrolyte repletion (hyponatremia, hypokalemia, hypochloridemia), possible UTI vs pneumonia vs gastroenteritis. 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 - Pt reports drinking 8 glasses of water daily - Na was 116 on admission - urine osm 129L, serum osm 255L, urine sodium 24L - Pt initially got IVF in the ED, her sodium went from 116 to 115, so she was then placed on fluid restriction, for which her sodium then came up to 124 in less than 12 hours, so fluid restriction was discontinued and patient was encouraged to drink more water * Check BEP every 4 hours * Appreciate nephrology input # Hypokalemia - K was 2.8 on admission - Mg was 1.5 on admission * Replete as needed # Gastroenteritis, most likely viral, diarrhea causing electrolyte abnormality and weakness - CT abdomen: Gastrointestinal Tract: No acute change of bowel. No bowel obstruction. No bowel wall thickening or edema. A few diverticula of colon but no diverticulitis. The appendix is normal. The small bowel loops are normal * Follow stool cx and c diff * qtc 495, avoid qt prolonging agents for nausea # Pneumonia? -CT chest: The lungs are clear with no evidence of inflammation or nodules. - Strep pneumo antigen positive in urine * Follow off abx # Asymptomatic bacteriuria -UA positive for LE, WBC, bacteria -No suprapubic tenderness -UC grew GNR * Follow off abx * Follow UC, BCX2 # Prolapse bladder - CT ABDOMEN AND PELVIS: Kidneys and Ureters: Marked bilateral hydronephrosis. There is dilatation of the calyces renal pelvis and ureters to the ureterovesical junction of both collecting systems. There is thinning of the cortex of both kidneys indicating that this is chronic change of the kidneys. Bladder: Bladder is partially filled. Mild bladder wall thickening. Pelvic Viscera: Uterus is retroverted. Low attenuating area seen at the cervical region with fullness in the lower uterine segment and cervical area. Soft tissue fullness in the lower uterine segment and cervical region. Pelvic ultrasound would be suggested for further evaluation. Correlate with physical exam. - Pelvic US: Urinary bladder has a mildly thickened, trabeculated appearance and the ureters are markedly dilated in this patient with severe bilateral hydronephrosis. 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 However, the specific cause of the obstruction is not elucidated. There is apparent diffuse thickening of the vaginal wall on the recent CT exam. Recommend correlation with findings on physical examination. * Pt refused wells and further intervention # Left lower extremity was larger than right * Doppler was negative for DVT # DM * Accucheck and novolog ss # h/o of htn, hypothyroidism, hyperlipidemia * Continue aspirin 81, lisnopril 20, levothyroxine, pravastatin Diet: Diabetic diet DVT ppx: mech and pharm FULL CODE Problem List: 1. Hyponatremia 2. Hypokalemia Pain Ratin Pain Location: none Pain Goal: Remain pain free Pain Plan: mild pp Tomorrow's Labs & Rationales: bep for hyponatremia DVT/Prophylaxis: mechanical, pharmacological ROHAN OGDEN 03/29/17 1136: Attending Review Statement Attending Statement Attending MD Statement: examined this patient, discuss w/resident/PA/CUT OUT OPERATOR, agreed w/resident/PA/CUT OUT OPERATOR, discussed with family, reviewed EMR data (avail), discussed with nursing, discussed with case mgmt, reviewed images, amended to note Attending Assessment/Plan: Impression/Plan: #Weakness- multifactorial due to electrolyte imbalance vs GI symtpoms Plan: Admit to general medicine, Correct electrolyte imbalance/hydrate. #Hyponatremia/Hypokalemia/Hypomagnesemia- - appears mildly volume depleted. ? SIADH, polydipsia. Has had mild reduction of Na in past (134-5). Improving. Plan: nephrology consultation. #Fever/Diarrhea- afebrile at present, however patient reports low grade temp at home. No distinct localizing symptoms. likley viral illness. #DM2- on insulin. Plan: Check glucoscans and sliding scale coverage. #Hypothyroid- clinically euthyroid. Plan: Continue Levothyroxine. #HTN-BP stable. Plan: Continue Lisinopril. #HL- on Pravastatin. Plan: Continue statin. #CAD- no angina. S/P prior CABG. Plan: Continue ASA/statin/lisinopril. Plan of care d/wed patient bedside in ER.
[2017-03-29 14:39] VITALS: BP 130/62
[2017-03-29 22:07] VITALS: BP 142/64
[2017-03-30 06:48] VITALS: BP 164/66
--- NOTE | 2017-03-30 07:03 | PN- Housestaff ---
TYSON POWELL,BORIS 03/30/17 0703: Subjective Follow-up For: hyponatremia Subjective: pt insists on going home today. I have spoken to her daughter on the phone who sounded upset regarding why her sodium has not come up as much as we would like. I have explained to her the risk of stroke (pontine myelenolysis) with rapid correction of sodium. Also informed her of the danger of low or high potassium on triggering arrythmia. Her k came down with insulin,dextrose,and kayexelate. Her sodium still hovering in the low 120s, currently on 1600 ml fluid restriction. SHe had diarrhea this morning, most likely due to kayexelate use, no blood. I have called nephrology service to see patient today, we plan on discharging her later around 4 pm when her son picks her up. Pt will go home with home PT. Review of Systems Constitutional: Reports: see HPI. Objective Last 24 Hrs of Vital Signs/I&O Vital Signs Date Time Temp Pulse Resp B/P B/P Pulse O2 O2 Flow FiO2 Mean Ox Delivery Rate 03/30 923 154/78 03/30 0648 98.5 68 18 164/66 98 Room Air 03/29 2207 98.8 64 19 142/64 94 03/29 1600 Room Air 03/29 1439 98.7 58 20 130/62 98 Intake & Output 03/30 1600 03/30 0800 03/30 0000 Intake Total 120 442 Output Total 300 200 Balance -180 242 Intake, Oral 120 442 Number 1 Bowel Movements Output, Urine 300 200 Physical Exam General Appearance: Alert, Oriented X3, No Acute Distress Cardiovascular: Normal S1, Normal S2, +PVCs Lungs: Clear to Auscultation, Normal Air Movement Abdomen: Normal Bowel Sounds, Soft, No Tenderness Neurological: Normal Speech Extremities: No Edema Current Medications: Current Medications Sig/Epifanio Start time Last Medication Dose Route Stop Time Status Admin Acetaminophen 650 MG Q6P PRN 03/28 1700 AC PO Aspirin Buffered 81 MG DAILY 03/29 1000 AC 03/30 PO 0923 Dextrose 25 GM ONCE ONE 03/29 2130 DC 03/29 IV 03/29 2131 2147 Enoxaparin Sodium 40 MG DAILY@1700 03/28 1655 AC 03/29 SC 1803 Insulin Aspart 0 TIDAC 03/29 0800 AC 03/29 SC 1804 Insulin Human Regular 10 UNITS ONCE ONE 03/290 DC 03/29 IV 03/29 213 2147 Levothyroxine Sodium 0.05 MG DAILY AC 03/29 0700 AC 03/30 PO 0533 Lisinopril 20 MG DAILY 03/29 1000 AC 03/30 PO 0923 Pravastatin Sodium 10 MG QPM 03/28 2200 AC 03/29 PO 2146 Sodium Polystyrene 60 ML ONCE ONE 03/30 0330 DC 03/30 Sulfonate PO 03/30 0331 0432 Last 24 Hrs of Lab/[place]valdo Results Last 24 Hrs of Labs/Mics: Laboratory Tests 03/30/17 1001: Anion Gap 5, Estimated GFR 60, BUN/Creatinine Ratio 7.8 03/30/17 0625: Anion Gap 7, Estimated GFR > 60, BUN/Creatinine Ratio 8.8 03/30/17 0215: Anion Gap 4 L, Estimated GFR > 60, BUN/Creatinine Ratio 10.0 03/29/17 1841: Anion Gap 4 L, Estimated GFR 60, BUN/Creatinine Ratio 7.8 03/29/17 1415: Anion Gap 3 L, Estimated GFR > 60, BUN/Creatinine Ratio 8.8 Microbiology 03/29 1227 STOOL: Clostridium difficile Toxin A & B - RECD 03/29 1227 STOOL: Stool Culture - RES Assessment/Plan Assessment: 86-year-old female with PMH of CAD s/p quadruple bypass, DM with diabetic nephropathy, hypothyroidism, HTN, prolapse bladder, hysterectomy, was brought in for 2 weeks history of diarrhea, low abdominal pain, and weakness. Labs were significant for hyponatremia na 116, hypochloridemia cl 76, hypokalemia k 3.8, UA positive for LE, WBC, bacteria, without suprapubic tenderness. Physical exam significant for a movable mass on the left lower quadrant, rhonchi over lung bases, right lower extremity larger than left lower extremity with mild tenderness. CT chest showed no acute lung findings, however urine strep pneumo antigen was positive, legionella negative. CT abdomen revealed bilateral hydronephrosis and bladder wall thickening, although patient has no trouble urinating. She refused wells or further intervention for her prolapsed bladder. Doppler was done and DVT was ruled out. Patient admitted to general medicine for electrolyte repletion (hyponatremia, hypokalemia, hypochloridemia), possible UTI vs pneumonia vs gastroenteritis. Pt initially got IVF in the ED, her sodium went from 116 to 115, so she was then placed on fluid restriction, for which her sodium then came up to 124 in less than 12 hours, so fluid restriction was discontinued and patient was encouraged to drink more water. Sodium then came down to 121, again pt was placed on 1600 ml fluid restriction, with the last na checked 123. Nephrology recc salt tid, on 1000-1500ml fluid restriction (about 4 cups of water) and f/u with Dr. De La Cruz. Pt received aggressive repletement of K, and her K bumped up to 5.8, for which she received insulin,dextrose, and kayexelate, with the last K checked to be 4.7. 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 Sodium then came down to 121, again pt was placed on 1600 ml fluid restriction, with the last na checked 123. Nephrology recc salt tid, on 1000-1500ml fluid restriction (about 4 cups of water) and f/u with Dr. De La Cruz. * Appreciate nephrology input * 1500 ml fluid restriction * salt tabs 1gm tid # Hypokalemia - K was 2.8 on admission, came up to 5.8 with repletion, down to 4.7 with dextrose, insulin, kayexelate - Mg was 1.5 on admission * Consider changing lisinopril to another antihypertensives if hyperkalemia continues to be an issue outpatient # Gastroenteritis, most likely viral, diarrhea causing electrolyte abnormality and weakness - CT abdomen: Gastrointestinal Tract: No acute change of bowel. No bowel obstruction. No bowel wall thickening or edema. A few diverticula of colon but no diverticulitis. The appendix is normal. The small bowel loops are normal * Follow stool cx and c diff * qtc 495, avoid qt prolonging agents for nausea # Pneumonia? -CT chest: The lungs are clear with no evidence of inflammation or nodules. - Strep pneumo antigen positive in urine * Follow off abx # Asymptomatic bacteriuria -UA positive for LE, WBC, bacteria -No suprapubic tenderness -UC grew GNR * Follow off abx * Follow UC, BCX2 # Prolapse bladder - CT ABDOMEN AND PELVIS: Kidneys and Ureters: Marked bilateral hydronephrosis. There is dilatation of the calyces renal pelvis and ureters to the ureterovesical junction of both collecting systems. There is thinning of the cortex of both kidneys indicating that this is chronic change of the kidneys. Bladder: Bladder is partially filled. Mild bladder wall thickening. Pelvic Viscera: Uterus is retroverted. Low attenuating area seen at the cervical region with fullness in the lower uterine segment and cervical area. Soft tissue fullness in the lower uterine segment and cervical region. Pelvic ultrasound would be suggested for further evaluation. Correlate with physical exam. - Pelvic US: Urinary bladder has a mildly thickened, trabeculated appearance and the ureters are markedly dilated in this patient with severe bilateral hydronephrosis. 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 However, the specific cause of the obstruction is not elucidated. There is apparent diffuse thickening of the vaginal wall on the recent CT exam. Recommend correlation with findings on physical examination. * Pt refused wells and further intervention # Left lower extremity was larger than right * Doppler was negative for DVT # DM * Accucheck and novolog ss # h/o of htn, hypothyroidism, hyperlipidemia * Continue aspirin 81, lisnopril 20, levothyroxine, pravastatin Diet: Diabetic diet DVT ppx: mech and pharm FULL CODE Problem List: 1. Hyponatremia Pain Ratin Pain Location: none Pain Goal: Remain pain free Pain Plan: none Tomorrow's Labs & Rationales: none DVT/Prophylaxis: mechanical, pharmacological ROHAN OGDEN 03/30/17 1046: Attending MD Review Statement Attending Statement Attending MD Statement: examined this patient, discuss w/resident/PA/WELDER FITTER HELPER, agreed w/resident/PA/WELDER FITTER HELPER, discussed with family, reviewed EMR data (avail), discussed with nursing, discussed with case mgmt, reviewed images, amended to note Attending Assessment/Plan: #Weakness- multifactorial due to electrolyte imbalance vs GI symtpoms Plan: Admit to general medicine, Correct electrolyte imbalance/hydrate. #Hyponatremia/Hypokalemia/Hypomagnesemia- - appears mildly volume depleted, improving. Plan: nephrology consultation if able to see. if not then PCP f/u and referral to nephrology o/p. #Fever/Diarrhea- afebrile at present, however patient reports low grade temp at home. No distinct localizing symptoms. likley viral illness. Improving #DM2- on insulin. Plan: Check glucoscans and sliding scale coverage. #Hypothyroid- clinically euthyroid. Plan: Continue Levothyroxine. #HTN-BP stable. Plan: Continue Lisinopril. #HL- on Pravastatin. Plan: Continue statin. #CAD- no angina. S/P prior CABG. Plan: Continue ASA/statin/lisinopril. Patient non coperative with evalaution of abnormal CT findings and Pelvis US findings, defer software engineer advisor or urological opinion for now. She does understand risks/ benefits of offered evalauation. Plan of care d/wed patient, wishes to leave today with daughter PT recommends home PT, case management aware.
[2017-03-30 09:23] VITALS: BP 154/78
[2017-03-30] MEDS ORDERED: LOMOTIL 2.5-0.1 EACH PO (11:35)
--- NOTE | 2017-03-30 11:39 | Patient Discharge Instructions ---
Discharge Instructions General Discharge Information You were seen/treated for: Hyponatremia Hypokalemia Diarrhea Special Instructions: Please follow up with PCP and Dr. De La Cruz in 1 week to check your sodium and potassium level. Please take salt tabs 3 times a day. Please limit fluid intake to 4922-3873 ml per day (about 4 cups of water a day). Diet Continue normal diet: No Recommended Diet: 1000-1500ml fluid restriction Activity Full Activity/No Limits: Yes Acute Coronary Syndrome Inclusion Criteria At DC or during hospital stay patient has or had the following: ACS DIAGNOSIS No Discharge Core Measures Meds if any: Prescribed or Continued at Discharge Meds if any: NOT Prescribed or Continued at Discharge Congestive Heart Failure Inclusion Criteria At DC or during hospital stay patient has or had the following: CHF DIAGNOSIS No Discharge Core Measures Meds if any: Prescribed or Continued at Discharge Meds if any: NOT Prescribed or Continued at Discharge Cerebrovascular accident Inclusion Criteria At DC or during hospital stay patient has or had the following: CVA/TIA Diagnosis No Discharge Core Measures Meds if any: Prescribed or Continued at Discharge Meds if any: NOT Prescribed or Continued at Discharge Venous thromboembolism Inclusion Criteria VTE Diagnosis No VTE Type NONE VTE Confirmed by (Test) NONE Discharge Core Measures - Per Current guidelines, there needs to be overlap - treatment for the first 5 days of Warfarin therapy. - If discharged on Warfarin prior to 5 days of - overlap therapy, the patient will need to be - assessed for post discharge needs including - *Post discharge parental anticoagulation - *Warfarin and/or parental anticoagulation education - *Follow up date to check INR post discharge At least 5 days overlap therapy as Inpatient No Meds if any: Prescribed or Continued at Discharge Note: Overlap Therapy is Warfarin and Anticoagulant Meds if any: NOT Prescribed or Continued at Discharge
[2017-03-30] MEDS ORDERED: SODIUM CHLORIDE1 G2 PO (11:40)
--- NOTE | 2017-03-30 11:49 | Discharge Summary ---
Visit Information Visit Dates Admission Date: 03/28/17 Discharge Date: 03/30/17 Hospital Course Course Attending Physician: ROHAN OGDEN MD [facility] 86-year-old female with PMH of CAD s/p quadruple bypass, DM with diabetic nephropathy, hypothyroidism, HTN, prolapse bladder, hysterectomy, was brought in for 2 weeks history of diarrhea, low abdominal pain, and weakness. Labs were significant for hyponatremia na 116, hypochloridemia cl 76, hypokalemia k 3.8, UA positive for LE, WBC, bacteria, without suprapubic tenderness. Physical exam significant for a movable mass on the left lower quadrant, rhonchi over lung bases, right lower extremity larger than left lower extremity with mild tenderness. CT chest showed no acute lung findings, however urine strep pneumo antigen was positive, legionella negative. CT abdomen revealed bilateral hydronephrosis and bladder wall thickening, although patient has no trouble urinating. She refused wells or further intervention for her prolapsed bladder. Doppler was done and DVT was ruled out. Patient admitted to general medicine for electrolyte repletion (hyponatremia, hypokalemia, hypochloridemia), possible UTI vs pneumonia vs gastroenteritis. Pt initially got IVF in the ED, her sodium went from 116 to 115, so she was then placed on fluid restriction, for which her sodium then came up to 124 in less than 12 hours, so fluid restriction was discontinued and patient was encouraged to drink more water. Sodium then came down to 121, again pt was placed on 1600 ml fluid restriction, with the last na checked 123. Nephrology (Dr. De La Cruz) recc salt tid, on 1000-1500ml fluid restriction (about 4 cups of water) and f/u with Dr. De La Cruz. Pt received aggressive repletement of K, and her K bumped up to 5.8, for which she received insulin,dextrose, and kayexelate, with the last K checked to be 4.7. Of note, she is also on lisinopril. 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 Sodium then came down to 121, again pt was placed on 1600 ml fluid restriction, with the last na checked 123. Nephrology recc salt tid, on 1000-1500ml fluid restriction (about 4 cups of water) and f/u with Dr. De La Cruz. * Appreciate nephrology input * 1500 ml fluid restriction * dc on salt tabs 1gm tid # Hypokalemia - K was 2.8 on admission, came up to 5.8 with repletion, down to 4.7 with dextrose, insulin, kayexelate - Mg was 1.5 on admission * Consider changing lisinopril to another antihypertensives if hyperkalemia continues to be an issue outpatient # Gastroenteritis, most likely viral, diarrhea causing electrolyte abnormality and weakness - CT abdomen: Gastrointestinal Tract: No acute change of bowel. No bowel obstruction. No bowel wall thickening or edema. A few diverticula of colon but no diverticulitis. The appendix is normal. The small bowel loops are normal * negative stool cx and c diff * qtc 495, avoid qt prolonging agents for nausea # Pneumonia? - CT chest: The lungs are clear with no evidence of inflammation or nodules. - Strep pneumo antigen positive in urine * Followed off abx # Asymptomatic bacteriuria -UA positive for LE, WBC, bacteria -No suprapubic tenderness -UC grew GNR * Followed off abx # Prolapse bladder - CT ABDOMEN AND PELVIS: Kidneys and Ureters: Marked bilateral hydronephrosis. There is dilatation of the calyces renal pelvis and ureters to the ureterovesical junction of both collecting systems. There is thinning of the cortex of both kidneys indicating that this is chronic change of the kidneys. Bladder: Bladder is partially filled. Mild bladder wall thickening. Pelvic Viscera: Uterus is retroverted. Low attenuating area seen at the cervical region with fullness in the lower uterine segment and cervical area. Soft tissue fullness in the lower uterine segment and cervical region. Pelvic ultrasound would be suggested for further evaluation. Correlate with physical exam. - Pelvic US: Urinary bladder has a mildly thickened, trabeculated appearance and the ureters are markedly dilated in this patient with severe bilateral hydronephrosis. 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 However, the specific cause of the obstruction is not elucidated. There is apparent diffuse thickening of the vaginal wall on the recent CT exam. Recommend correlation with findings on physical examination. * Pt refused wells and further intervention # Left lower extremity was larger than right * Doppler was negative for DVT # DM * Accucheck and novolog ss # h/o of htn, hypothyroidism, hyperlipidemia * Continue aspirin 81, lisnopril 20, levothyroxine, pravastatin Diet: Diabetic diet DVT ppx: mech and pharm FULL CODE Allergies: Coded Allergies: codeine (NAUSEA 03/28/17) nut - unspecified (ANAPHYLAXIS 03/28/17) Disposition Summary Disposition Principal Diagnosis: Hyponatremia Additional Diagnosis: Hypokalemia, most likely due to diarrhea Discharge Disposition: home health services Discharge Instructions General Discharge Information Code Status: Full Code Patient's Diet: Diabetic diet 1000-1500ml fluid restriction Patient's Activity: As tolerated Follow-Up Instructions/Appts: You were seen/treated for: Hyponatremia Hypokalemia Diarrhea Special Instructions: Please follow up with PCP and Dr. De La Cruz in 1 week to check your sodium and potassium level. Please take salt tabs 3 times a day. Please limit fluid intake to 8309-2126 ml per day (about 4 cups of water a day). Medications at Discharge Discharge Medications: Continue taking these medications: Levothyroxine Sodium (Levothyroxine Sodium) 50 MCG TABLET 1 Tablet ORAL DAILY Qty = 90 Lisinopril (Lisinopril) 20 MG TABLET 1 Tablet ORAL DAILY Qty = 90 Pravastatin Sodium (Pravastatin Sodium) 10 MG TABLET 1 Tablet ORAL Every night Qty = 90 Aspirin (Lo-Dose Aspirin EC) 81 MG TABLET. 1 Tablet ORAL DAILY Qty = 90 Start taking the following new medications: Sodium Chloride (Sodium Chloride) 1 GRAM TABLET 1,000 Milligram ORAL THREE TIMES DAILY Days = 30 No Refills Instructions: Please follow up with Dr. De La Cruz and PCP Diphenoxylate HCl/Atropine (Lomotil 2.5-0.025 MG Tablet) 2.5 MG-0.025 MG TABLET 1 Tablet ORAL THREE TIMES DAILY as needed for diarrhea Qty = 15 No Refills Copies To: GERMAIN SINGH APRN, MD,GARRY Germain Attending MD Review Statement Documenting Attending: ROHAN OGDEN MD
== END 2017-03-30 13:30 | disposition home health service (06) | DRG 641 ==
LOC: ERH 12:50 → ERHI 15:22 → 2NB 15:22 → ENRESERV 23:11 → ERHI 03-29 09:15 → CANRESERV 03-29 12:47 → ENRESERV 03-29 12:47 → CMPBEDREQ 03-29 12:51 → ENRESERV 03-29 13:15 → CMPBEDREQ 03-29 13:16 → 2NB 03-29 14:15 → ENPENDDIS 03-30 13:07 → 2NB 03-30 13:30
PROVIDERS: Emergency Medicine; ADMIT Internal Medicine
DX: E87.1 Hypo-osmolality and hyponatremia (principal); E11.21 Type 2 diabetes mellitus with diabetic nephropathy; A08.4 Viral intestinal infection, unspecified; N13.30 Unspecified hydronephrosis; E83.42 Hypomagnesemia; Z95.1 Presence of aortocoronary bypass graft; I25.10 Atherosclerotic heart disease of native coronary artery without angina pectoris; E03.9 Hypothyroidism, unspecified; I10 Essential (primary) hypertension; E87.6 Hypokalemia; N81.10 Cystocele, unspecified; E87.8 Other disorders of electrolyte and fluid balance, not elsewhere classified; E78.5 Hyperlipidemia, unspecified
CPT/HCPCS: 2NBP; 84133; 84300; ERO; 36415; 74177; 81001; 82436; 82570; 87040; 87045; 87070; 87086; 87328; 87329; 87449; 87450; 93005; 93010; 93970; 97161-GP; J1650; J1815